=== PATIENT | female | born 1960 | race Caucasian/White ===

== ENCOUNTER → 2018-04-21 | Day surgery (SDC) | payer OTHER ==
--- NOTE | 2018-04-21 12:43 | OP ---
DATE OF OPERATION: 04/21/2018 PREOPERATIVE DIAGNOSIS: Left breast complex cyst at 3 o'clock, 2 cm from the nipple. POSTOPERATIVE DIAGNOSIS: Left breast complex cyst at 3 o'clock, 2 cm from the nipple. PROCEDURE PERFORMED: Left ultrasound-guided cyst aspiration. SURGEON: Mishel Urrutia MD ANESTHESIA: Local. ESTIMATED BLOOD LOSS: Minimal. COMPLICATIONS: None. DESCRIPTION OF PROCEDURE: The patient was made aware of the risks and benefits of the procedure and consented. She was placed in the supine position. Under sterile conditions, with 1% lidocaine for local anesthesia, using an 18-gauge needle, under ultrasound guidance, aspirated a small amount of nonbloody serous fluid. The cyst was completely decompressed with no residual nodularity. Well tolerated by the patient. A Band-Aid was applied. The patient is to return our office in 6 months. MISHEL URRUTIA M.D. [id number]
== END | disposition home or self-care (01) ==
LOC: FRADUS-SUR 11:07
PROVIDERS: ATTEND Surgery Surgical Oncology
PROC: 0H9U3ZX Drainage of Left Breast, Percutaneous Approach, Diagnostic (ICD-10-PCS; principal; 2018-04-21)
PROC: BH41ZZZ Ultrasonography of Left Breast (ICD-10-PCS; 2018-04-21)
DX: N60.02 Solitary cyst of left breast (principal)
CPT/HCPCS: 76942-TC; 77065-TC